=== PATIENT | female | born 1955 | race Caucasian/White ===

== ENCOUNTER 2018-05-01 20:42 | Emergency (ER) | payer MEDICARE, OTHER ==
[~2018-05-01] VITALS: Ht 175.3 cm; Wt 102.1 kg
[2018-05-01 20:49] VITALS: BP 129/88
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
--- NOTE | 2018-05-01 21:46 | NUR ---
PT TAKEN TO BED 9
--- NOTE | 2018-05-01 21:50 | NUR ---
RECEIVED REPORT FROM ALESSANDRA PATIÑO. TRANSFER OF CARE AT THIS TIME.
--- NOTE | 2018-05-01 21:53 | NUR ---
X-Ray at bedside.
--- NOTE | 2018-05-01 23:15 | NUR ---
PATIENT RESTING AT THIS TIME. NO SIGNS OF DISTRESS.
[2018-05-01 23:59] VITALS: BP 142/66
--- NOTE | 2018-05-02 | NUR ---
Patient discharged with v/s stable. Written and verbal after care instructions given and explained. Patient alert, oriented and verbalized understanding of instructions. Wheel Chair Assisted with to car. All questions addressed prior to discharge. ID band removed. Patient advised to follow up with PMD. Rx of NAPROSYN 500MG BID given. Patient educated on indication of medication including possible reaction and side effects. Opportunity to ask questions provided and answered.
== END 2018-05-02 | disposition home or self-care (01) ==
LOC: MED 20:42
DX: S97.121A Crushing injury of right lesser toe(s), initial encounter (principal); J45.909 Unspecified asthma, uncomplicated; Z88.0 Allergy status to penicillin; Z88.2 Allergy status to sulfonamides; Z88.1 Allergy status to other antibiotic agents; W23.0XXA Caught, crushed, jammed, or pinched between moving objects, initial encounter; Y93.89 Activity, other specified; Y92.89 Other specified places as the place of occurrence of the external cause; Y99.8 Other external cause status
CPT/HCPCS: 73660; 99284; Q0092

== ENCOUNTER 2021-08-19 15:26 | Emergency (ER) | payer MEDICARE, OTHER ==
[~2021-08-19] VITALS: Ht 175.3 cm; Wt 120.2 kg
[2021-08-19 15:31] VITALS: BP 151/83
[2021-08-19] MEDS ORDERED: PROCHLORPERAZINE 10 MG/2 ML VIAL IM ONE (16:35)
--- NOTE | 2021-08-19 16:54 | NUR ---
66/F BIB SELF WITH C/O HEADACHE, DIZZINESS AND DOUBLE VISION OUT OF HER RIGHT EYE SINCE FRIDAY. STATES SHE CALLED HER PCP AND WAS TOLD TO COME TO ED. DENIES CP, SOB OR FEVERS. PATIENT IS NONAMBULATORY AT BASELINE, STATES SHE DOES NOT FEEL ANY INCREASED WEAKNESS OR NUMBNESS IN EXTREMITIES, NO SIGNS OF FACIAL DROOP OR MUMBLED SPEECH.
[2021-08-19] MEDS ORDERED: PRED20TA5 PO (17:09)
--- NOTE | 2021-08-19 17:17 | NUR ---
Patient discharged with v/s stable. Written and verbal after care instructions ABOUT SINUS HEADACHE given and explained. Patient alert, oriented and verbalized understanding of instructions. Ambulatory with steady gait. All questions addressed prior to discharge. ID band removed. Patient advised to follow up with PMD. Rx of PREDNISONE given. Patient educated on indication of medication including possible reaction and side effects. Opportunity to ask questions provided and answered.
== END 2021-08-19 17:17 | disposition home or self-care (01) ==
LOC: MED 15:26
DX: G43.909 Migraine, unspecified, not intractable, without status migrainosus (principal); I10 Essential (primary) hypertension; J45.909 Unspecified asthma, uncomplicated; Z88.0 Allergy status to penicillin; Z88.1 Allergy status to other antibiotic agents
CPT/HCPCS: 96372; 99283; J0780

== ENCOUNTER 2023-04-11 12:44 | Emergency (ER) | payer MEDICARE, OTHER ==
[~2023-04-11] VITALS: Ht 170.2 cm; Wt 127.0 kg
[~2023-04-11 12:44] MED LIST: PRED20TA5 PO
[2023-04-11 13:05] VITALS: BP 134/83; PULSE 70; RESP 18; TEMP 98.2; O2SAT 100
[2023-04-11 14:54] VITALS: BP 134/83; PULSE 70; RESP 18; TEMP 98.2; O2SAT 100
== END 2023-04-11 14:53 | disposition home or self-care (01) ==
LOC: MED 12:44
DX: M79.641 Pain in right hand (principal); J45.909 Unspecified asthma, uncomplicated; Z88.1 Allergy status to other antibiotic agents; Z88.0 Allergy status to penicillin; Z79.899 Other long term (current) drug therapy
CPT/HCPCS: 99281

== ENCOUNTER 2023-05-20 16:00 | Emergency (ER) | payer MEDICARE, OTHER ==
[~2023-05-20] VITALS: Ht 175.3 cm; Wt 117.9 kg
[2023-05-20 16:15] VITALS: BP 139/80; PULSE 83; RESP 20; TEMP 97.9; O2SAT 95
== END 2023-05-20 17:53 | disposition home or self-care (01) ==
LOC: MED 16:00
DX: L02.211 Cutaneous abscess of abdominal wall (principal); Z53.21 Procedure and treatment not carried out due to patient leaving prior to being seen by health care provider
CPT/HCPCS: 99281

== ENCOUNTER 2023-05-29 08:44 | Emergency (ER) | payer MEDICARE, OTHER ==
[~2023-05-29] VITALS: Ht 175.3 cm; Wt 120.2 kg
[2023-05-29 08:57] VITALS: BP 149/85; PULSE 83; RESP 14; TEMP 98.3; O2SAT 95
[2023-05-29 09:11] VITALS: BP 141/78; PULSE 86; RESP 20; TEMP 97.3; O2SAT 97
== END 2023-05-29 09:47 | disposition home or self-care (01) ==
LOC: MED 08:44
DX: R19.09 Other intra-abdominal and pelvic swelling, mass and lump (principal); E11.22 Type 2 diabetes mellitus with diabetic chronic kidney disease; I12.9 Hypertensive chronic kidney disease with stage 1 through stage 4 chronic kidney disease, or unspecified chronic kidney disease; N18.9 Chronic kidney disease, unspecified; J45.909 Unspecified asthma, uncomplicated; Z88.0 Allergy status to penicillin; Z88.1 Allergy status to other antibiotic agents; Z79.899 Other long term (current) drug therapy
CPT/HCPCS: 99284